=== PATIENT | female | born 1960 | race Caucasian/White ===

== ENCOUNTER 2020-06-05 20:36 | Inpatient (IN) | payer MEDICARE, OTHER ==
[~2020-06-05] VITALS: Ht 228 cm; Wt 104.0 kg
[~2020-06-05 20:36] MED LIST: ATARAX25 MG ORAL; NITROFURANTOIN100 M2 ORAL; ZOFRAN ODT4 MG ORAL
[2020-06-05 20:45] VITALS: BP 128/73
[2020-06-05] MEDS ORDERED: ELIQUIS5 MG ORAL (20:54)
[2020-06-05] MEDS ORDERED: METFORMIN HCL500 M1 ORAL (20:54)
[2020-06-05] MEDS ORDERED: LORATADINE10 M1 PO (20:54)
[2020-06-05] MEDS ORDERED: DOCUSATE SODIU250 MG ORAL (20:54)
[2020-06-05] MEDS ORDERED: ACETAMINOPHEN325 M1 ORAL ×2 (20:54)
[2020-06-05] MEDS ORDERED: POTASSIUM CHLO20 ME1 ORAL (20:54)
[2020-06-05] MEDS ORDERED: MULTIVITAMINS1 EAC8 ORAL (20:54)
[2020-06-05] MEDS ORDERED: NORCO 5-325 TA1 EAC1 ORAL (20:54)
[2020-06-05] MEDS ORDERED: REQUIP0.25 MG ORAL (20:54)
[2020-06-05] MEDS ORDERED: MAGOX 400400 MG ORAL (20:54)
[2020-06-05] MEDS ORDERED: SYNTHROID50 MCG ORAL (20:54)
[2020-06-05] MEDS ORDERED: FISH OIL 1,0001 EAC1 ORAL (20:54)
[2020-06-05] MEDS ORDERED: HUMULIN R100 UNIT/1 SUBQ (20:54)
[2020-06-05] MEDS ORDERED: METOPROLOL TART25 MG ORAL (20:54)
[2020-06-05] MEDS ORDERED: NEXAFED30 MG ORAL (20:54)
[2020-06-05] MEDS ORDERED: DIGOXIN125 MCG ORAL (20:54)
[2020-06-05] MEDS ORDERED: NEURONTIN400 MG ORAL (20:54)
[2020-06-05] MEDS ORDERED: NP THYROID30 MG PO (20:54)
[2020-06-05] MEDS ORDERED: NORCO 10-325 T1 EACH ORAL (20:54)
[2020-06-05 21:12] LABS: BASOPHILS % (AUTO) 1.6 % (0.0-2.0); EOSINOPHILS % (AUTO) 1.5 % (0.0-3.0); HEMATOCRIT 39.4 % (37.0-47.0); HEMOGLOBIN 12.9 G/DL (12.0-16.0); MEAN CORPUSCULAR VOLUME 90 FL (80-99); MONOCYTES % (AUTO) 8.4 % (1.0-10.0); NEUTROPHILS % (AUTO) 52.5 % (45.0-75.0); PLATELET COUNT 295 K/UL (150-450); RED BLOOD COUNT 4.38 M/UL (4.20-5.40); RED CELL DISTRIBUTION WIDTH 12.9 % (11.6-14.8)
[2020-06-05 21:22] LABS: APPEARANCE,URINE TURBID; BILIRUBIN, URINE NEGATIVE (NEGATIVE); GLUCOSE, URINE (UA) NEGATIVE (NEGATIVE); KETONES,URINE 1+ (NEGATIVE); LEUKOCYTE ESTERASE ,URINE 3+ (NEGATIVE); NITRITE,URINE POSITIVE (NEGATIVE); PH,URINE 7 (4.5-8.0); PROTEIN,URINE 3+ (NEGATIVE); UROBILINOGEN,URINE 1 MG/DL (0.0-1.0)
[2020-06-05 21:25] LABS: ANION GAP 9 mmol/L (5-15); BLOOD UREA NITROGEN 8 mg/dL (7-18); CALCIUM 9.2 MG/DL (8.5-10.1); CARBON DIOXIDE 26 MMOL/L (21-32); CHLORIDE 100 MMOL/L (98-107); CREATININE 0.8 MG/DL (0.55-1.30); POTASSIUM 4.1 MMOL/L (3.5-5.1); SODIUM 135 MMOL/L (136-145)
[2020-06-05 21:40] LABS: ALANINE AMINOTRANSFERASE 90 U/L (12-78); ALBUMIN 3.4 G/DL (3.4-5.0); ALBUMIN/GLOBULIN RATIO 0.7 (1.0-2.7); ALKALINE PHOSPHATASE 81 U/L (46-116); ASPARTATE AMINO TRANSFERASE 87 U/L (15-37); BILIRUBIN,TOTAL 0.4 MG/DL (0.2-1.0); CKMB < 0.5 NG/ML (0.0-3.6); CREATINE KINASE 47 U/L (26-308); PHOSPHORUS 3.3 MG/DL (2.5-4.9)
[2020-06-05 21:46] LABS: COLOR,URINE BROWN
--- NOTE | 2020-06-05 22:04 | Emergency Room Report ---
History of Present Illness General Chief Complaint: Dyspnea/Respdistress Source: Patient Present Illness HPI 60-year-old female presents with cough, shortness of breath x1 week, feeling nauseated, patient with a diagnosis of Covid, patient with fever/chills, no aggravating relieving factors severity is moderate, constant patient presents from snf for treatment for possible dehydration given reduced p.o. Allergies: Coded Allergies: No Known Allergies (Unverified , 11/04/15) COVID-19 Screening Contact w/high risk pt: No Experienced COVID-19 symptoms?: Yes COVID-19 Testing performed SPEECH PATHOLOGIST ASSISTANT: Yes - 06/04/20 COVID-19 Screening: Positive COVID-19 COVID-19 Testing Source: SNF Patient History Past Medical History: see triage record Now: No Reviewed Nursing Documentation: PMH: Agreed; PSxH: Agreed Nursing Documentation-PMH Hx Cardiac Problems: Yes - A Fib, hyperlipidemia Hx Diabetes: Yes Review of Systems All Other Systems: negative except mentioned in HPI Physical Exam Vital Signs Date Time Temp Pulse Resp B/P (MAP) Pulse Ox O2 Delivery O2 Flow Rate FiO2 06/05/20 20:37 99.1 62 19 120/70 (87) 92 Room Air Sp02 EP Interpretation: reviewed, normal General Appearance: well appearing, no apparent distress, alert Head: normocephalic, atraumatic Eyes: bilateral eye PERRL, bilateral eye EOMI ENT: uvula midline, dry mucus membranes Neck: supple, thyroid normal, supple/symm/no masses Respiratory: lungs clear, no respiratory distress, no retraction, no accessory muscle use Cardiovascular #1: normal peripheral pulses, regular rate, rhythm, no edema, no gallop, no murmur Gastrointestinal: non tender, soft, no guarding, no rebound Musculoskeletal: normal inspection Neurologic: alert, oriented x3 Psychiatric: mood/affect normal Skin: no rash, warm/dry Medical Decision Making Diagnostic Impression: Primary Impression: UTI (urinary tract infection) Qualified Codes: N30.00 - Acute cystitis without hematuria Additional Impressions: Dehydration COVID-19 ER Course 60-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 Butler for dehydration, UTI, and COVID Patient remains stable for med surg. Laboratory Tests Test 06/05/20 20:45 06/05/20 21:00 06/05/20 21:20 White Blood Count 7.0 K/UL (4.8-10.8) Red Blood Count 4.38 M/UL (4.20-5.40) Hemoglobin 12.9 G/DL (12.0-16.0) Hematocrit 39.4 % (37.0-47.0) Mean Corpuscular Volume 90 FL (80-99) Mean Corpuscular Hemoglobin 29.4 PG (27.0-31.0) Mean Corpuscular Hemoglobin Concent 32.6 G/DL (32.0-36.0) Red Cell Distribution Width 12.9 % (11.6-14.8) Platelet Count 295 K/UL (150-450) Mean Platelet Volume 6.4 FL (6.5-10.1) L Neutrophils (%) (Auto) 52.5 % (45.0-75.0) Lymphocytes (%) (Auto) 36.0 % (20.0-45.0) Monocytes (%) (Auto) 8.4 % (1.0-10.0) Eosinophils (%) (Auto) 1.5 % (0.0-3.0) Basophils (%) (Auto) 1.6 % (0.0-2.0) Sodium Level 135 MMOL/L (136-145) L Potassium Level 4.1 MMOL/L (3.5-5.1) Chloride Level 100 MMOL/L (98-107) Carbon Dioxide Level 26 MMOL/L (21-32) Anion Gap 9 mmol/L (5-15) Blood Urea Nitrogen 8 mg/dL (7-18) Creatinine 0.8 MG/DL (0.55-1.30) Estimated Glomerular Filtration Rate > 60 mL/min (>60) Glucose Level 212 MG/DL (74-106) H Lactic Acid Level 3.70 mmol/L (0.4-2.0) H Calcium Level 9.2 MG/DL (8.5-10.1) Phosphorus Level 3.3 MG/DL (2.5-4.9) Magnesium Level 1.5 MG/DL (1.8-2.4) L Total Bilirubin 0.4 MG/DL (0.2-1.0) Aspartate Amino Transferase (AST) 87 U/L (15-37) H Alanine Aminotransferase (ALT) 90 U/L (12-78) H Alkaline Phosphatase 81 U/L (46-116) Total Creatine Kinase 47 U/L (26-308) Creatine Kinase MB < 0.5 NG/ML (0.0-3.6) Creatine Kinase MB Relative Index 1.0 Troponin I 0.000 ng/mL (0.000-0.056) Pro-B-Type Natriuretic Peptide 281 pg/mL (0-125) H Total Protein 8.1 G/DL (6.4-8.2) Albumin 3.4 G/DL (3.4-5.0) Globulin 4.7 g/dL Albumin/Globulin Ratio 0.7 (1.0-2.7) L Lipase 145 U/L (73-393) Urine Color Brown Urine Appearance Turbid Urine pH 7 (4.5-8.0) Urine Specific [place] 1.015 (1.005-1.035) Urine Protein 3+ (NEGATIVE) H Urine Glucose (UA) Negative (NEGATIVE) Urine Ketones 1+ (NEGATIVE) H Urine Blood 5+ (NEGATIVE) H Urine Nitrite Positive (NEGATIVE) H Urine Bilirubin Negative (NEGATIVE) Urine Urobilinogen 1 MG/DL (0.0-1.0) H Urine Leukocyte Esterase 3+ (NEGATIVE) H Urine RBC Tntc /HPF (0 - 2) H Urine WBC Tntc /HPF (0 - 2) H Urine Squamous Epithelial Cells Moderate /LPF (NONE/OCC) H Urine Bacteria Many /HPF (NONE) H Prothrombin Time 10.9 SEC (9.30-11.50) Prothrombin Time INR 1.0 (0.9-1.1) Activated Partial Thromboplast Time 31 SEC (23-33) Microbiology Date/Time Source Procedure Growth Status 06/05/20 20:45 Nasopharynx SARS-CoV-2 RdRp Gene Assay - Final Complete EKG Diagnostic Results Troponin ordered: Yes When was troponin ordered?: Jun 05, 2020 - 2052 EKG Time: 20:54 EP Interpretation: Atrial fibrillation, rate 86, QTc 428, no acute ST elevations, normal axis Rhythm Strip Diag. Results Rhythm Strip Time: 22:11 EP Interpretation: yes Rate: 75 Rhythm: other - Afib Last Vital Signs Date Time Temp Pulse Resp B/P (MAP) Pulse Ox O2 Delivery O2 Flow Rate FiO2 06/05/20 20:45 98.9 78 22 128/73 97 Room Air Disposition: ADMITTED INPATIENT Condition: Stable Referrals: Jese Butler MD (PCP) Valerio Edwards MD Jun 05, 2020 22:04
[2020-06-05] MEDS ORDERED: cefTRIAXone 1 GM in NS 55 ML IVPB ONE (22:15)
[2020-06-05 22:30] VITALS: BP 130/77
[2020-06-06 00:40] VITALS: BP 105/55
[2020-06-06] MEDS ORDERED: REQUIP5 MG ORAL (02:01)
[2020-06-06] MEDS ORDERED: SYSTANE ULTRA 010 ML BOTH EYES (02:01)
[2020-06-06] MEDS ORDERED: ACETAMINOPHEN325 M1 ORAL (02:01)
[2020-06-06] MEDS ORDERED: AZELASTINE137 MCG/0. NS (02:01)
[2020-06-06] MEDS ORDERED: NP THYROID30 MG PO (02:01)
[2020-06-06] MEDS ORDERED: POTASSIUM CITR15 MEQ PO (02:01)
[2020-06-06] MEDS ORDERED: Pseudoephedrine 30mg tab ORAL PRN (02:15)
[2020-06-06 04:00] VITALS: BP 110/56
[2020-06-06] MEDS ORDERED: NovoLOG Insulin Flexpen SUBQ SCH (06:30)
[2020-06-06] MEDS: NovoLOG Insulin Flexpen SUBQ SCH ×5 (06:35→21:00)
[2020-06-06 08:00] VITALS: BP 110/56
[2020-06-06] MEDS ORDERED: Magnesium Oxide 400mg tab ORAL SCH (09:00)
[2020-06-06] MEDS: Multivitamin w/Minerals tab ORAL SCH (09:56)
[2020-06-06] MEDS: metFORMIN 500mg tab ORAL SCH ×2 (09:56→18:49)
[2020-06-06] MEDS: Docusate 250mg cap ORAL SCH ×2 (09:57→09:58)
[2020-06-06] MEDS: Magnesium Oxide 400mg tab ORAL SCH ×2 (09:58→18:49)
[2020-06-06] MEDS: Digoxin 0.125mg tab ORAL SCH (09:59)
[2020-06-06] MEDS: Eliquis 5mg tablet ORAL SCH ×2 (10:00→18:49)
[2020-06-06] MEDS: HYDROcodone/Acetamin 10/325 tab ORAL PRN (10:00)
[2020-06-06 12:00] VITALS: BP 110/56
--- NOTE | 2020-06-06 17:43 | Diagnostic Imaging Report ---
Indication: Cough Technique: One view of the chest Comparison: none Findings: Heart is enlarged. Lungs and pleural spaces are clear. Impression: Cardiomegaly. No definite acute process
[2020-06-06] MEDS: HYDROcodone/Acetamin 5/325 tab ORAL PRN ×2 (18:35→18:43)
--- NOTE | 2020-06-06 19:00 | History and Physical Report ---
DATE OF ADMISSION: 06/05/2020 HISTORY OF PRESENT ILLNESS: The patient is a 60-year-old white female who came to the emergency room for having severe diarrhea, dizziness, UTI, and dehydration and COVID-19 positive. The patient is currently in bed, looks very dehydrated and generalized weakness. The patient minimum cough, no fever, but had diarrhea for 3 days and feeling weak and tired and dizziness. PAST MEDICAL HISTORY: Significant for diabetes, hypertension, diabetic neuropathy, AFib, weakness. MEDICATIONS: She is taking digoxin, continue artificial tears, gabapentin, Murphy, levothyroxine, metformin, metoprolol, KCl. ALLERGIES: NKA. FAMILY HISTORY: Noncontributory. SOCIAL HISTORY: Lives at retirement, mostly bedbound. REVIEW OF SYSTEMS: Generalized weakness, tired, cough, and diarrhea, recurrent abdominal pain. PHYSICAL EXAMINATION: VITAL SIGNS: Blood pressure 110/56, pulse 71, respirations 17, temperature 98.1. HEENT: NAD. SKIN: Poor skin turgor and dehydration. CHEST: Bilaterally clear. CARDIOVASCULAR: Regular rhythm. ABDOMEN: Soft, mild tenderness. EXTREMITIES: No edema. GENITOURINARY: Deferred. LABORATORY DATA: White count 7, hemoglobin 13, hematocrit 39. Chemistry panel, lactic acid 3.7, A1c 7.7, glucose 82. Her urine is showing 2+ blood, TNTC rbc's, TNTC wbc's, positive nitrites, 5+ blood. ASSESSMENT AND PLAN: 1. Hematuria. 2. UTI. 3. COVID-19 positive. 4. Dehydration. 5. COVID-19 positive. PLAN: We will admit her to the medical floor in isolation. Continue antibiotic. Continue loratadine, milk of magnesia, thyroid, fish oil, multivitamin, metoprolol, gabapentin, Colace, consider pulmonary consult. Adonis Butler M.D. DR: CASSIDY JOB#: [id number] CC:
[2020-06-06 20:00] VITALS: BP 129/51
[2020-06-06] MEDS: cefTRIAXone 1 GM in D5W 55 ML IVPB SCH (21:40)
[2020-06-07 04:00] VITALS: BP 125/55
[2020-06-07] MEDS: HYDROcodone/Acetamin 5/325 tab ORAL PRN (05:34)
[2020-06-07 06:14] LABS: BASOPHILS % (AUTO) 0.8 % (0.0-2.0); EOSINOPHILS % (AUTO) 1.9 % (0.0-3.0); HEMATOCRIT 38.3 % (37.0-47.0); HEMOGLOBIN 12.2 G/DL (12.0-16.0); LYMPHOCYTES % (AUTO) 39.2 % (20.0-45.0); MEAN CORPUSCULAR VOLUME 93 FL (80-99); MONOCYTES % (AUTO) 7.7 % (1.0-10.0); NEUTROPHILS % (AUTO) 50.3 % (45.0-75.0); PLATELET COUNT 235 K/UL (150-450); RED BLOOD COUNT 4.13 M/UL (4.20-5.40); RED CELL DISTRIBUTION WIDTH 12.8 % (11.6-14.8); WHITE BLOOD COUNT 6.3 K/UL (4.8-10.8)
[2020-06-07 06:26] LABS: ALANINE AMINOTRANSFERASE 80 U/L (12-78); ALBUMIN/GLOBULIN RATIO 0.7 (1.0-2.7); ALKALINE PHOSPHATASE 73 U/L (46-116); ANION GAP 9 mmol/L (5-15); ASPARTATE AMINO TRANSFERASE 73 U/L (15-37); BILIRUBIN,TOTAL 0.3 MG/DL (0.2-1.0); BLOOD UREA NITROGEN 4 mg/dL (7-18); CALCIUM 8.9 MG/DL (8.5-10.1); CARBON DIOXIDE 23 MMOL/L (21-32); CHLORIDE 104 MMOL/L (98-107); CREATININE 0.6 MG/DL (0.55-1.30); POTASSIUM 4.1 MMOL/L (3.5-5.1); SODIUM 136 MMOL/L (136-145)
[2020-06-07] MEDS: NovoLOG Insulin Flexpen SUBQ SCH ×4 (06:30→21:00)
[2020-06-07 08:00] VITALS: BP 112/72
[2020-06-07] MEDS: Multivitamin w/Minerals tab ORAL SCH (09:44)
[2020-06-07] MEDS: metFORMIN 500mg tab ORAL SCH ×2 (09:46→17:54)
[2020-06-07] MEDS: Eliquis 5mg tablet ORAL SCH ×2 (09:46→17:54)
[2020-06-07] MEDS: Digoxin 0.125mg tab ORAL SCH (09:46)
[2020-06-07] MEDS: Magnesium Oxide 400mg tab ORAL SCH ×2 (09:47→17:54)
[2020-06-07] MEDS: HYDROcodone/Acetamin 10/325 tab ORAL PRN (09:49)
[2020-06-07 12:00] VITALS: BP 117/76
--- NOTE | 2020-06-07 12:13 | General Progress Note ---
Subjective Allergies: Coded Allergies: CIPROFLOXACIN (Unverified Allergy, Unknown, 06/06/20) SULFAMETHOXAZOLE (Unverified Allergy, Unknown, 06/06/20) TRIMETHOPRIM (Unverified Allergy, Unknown, 06/06/20) Subjective doing ok Objective Last 24 Hour Vital Signs Date Time Temp Pulse Resp B/P (MAP) Pulse Ox O2 Delivery O2 Flow Rate FiO2 06/07/20 09:46 89 06/07/20 09:45 89 112/72 06/07/20 08:06 Room Air 06/07/20 08:00 98.2 89 18 112/72 (85) 97 06/07/20 04:00 97.6 74 18 125/55 (78) 96 06/06/20 21:00 Room Air 06/06/20 20:00 98.4 78 17 129/51 (77) 97 06/06/20 16:18 71 110/56 Intake and Output 06/06/20 06/07/20 19:00 07:00 Intake Total 725 ml 1515 ml Output Total 850 ml Balance 725 ml 665 ml Intake Oral 650 ml 540 ml IV Total 75 ml 975 ml Output Urine Total 850 ml # Voids 3 # Bowel Movements 2 Laboratory Tests 06/06/20 12:44: POC Whole Blood Glucose 182H 06/06/20 16:28: POC Whole Blood Glucose [Pending] 06/06/20 21:46: POC Whole Blood Glucose 157H 06/07/20 05:00: White Blood Count 6.3, Red Blood Count 4.13L, Hemoglobin 12.2, Hematocrit 38.3, Mean Corpuscular Volume 93, Mean Corpuscular Hemoglobin 29.5, Mean Corpuscular Hemoglobin Concent 31.9L, Red Cell Distribution Width 12.8, Platelet Count 235, Mean Platelet Volume 5.8L, Neutrophils (%) (Auto) 50.3, Lymphocytes (%) (Auto) 39.2, Monocytes (%) (Auto) 7.7, Eosinophils (%) (Auto) 1.9, Basophils (%) (Auto) 0.8, Sodium Level 136, Potassium Level 4.1, Chloride Level 104, Carbon Dioxide Level 23, Anion Gap 9, Blood Urea Nitrogen 4L, Creatinine 0.6, Estimat Glomerular Filtration Rate > 60, Glucose Level 172H, Calcium Level 8.9, Total Bilirubin 0.3, Aspartate Amino Transf (AST/SGOT) 73H, Alanine Aminotransferase (ALT/SGPT) 80H, Alkaline Phosphatase 73, Total Protein 7.2, Albumin 3.0L, Globulin 4.2, Albumin/Globulin Ratio 0.7L Height (Feet): 6 Height (Inches): 6.00 Weight (Pounds): 219 General Appearance: alert EENT: PERRL/EOMI Neck: non-tender, supple Cardiovascular: normal rate Respiratory/Chest: crackles/rales Abdomen: non tender, soft Edema: mild edema Assessment/Plan Assessment/Plan: generaliez weakness woresning of arianna mayo 19 Jese Butler MD Jun 07, 2020 12:13
[2020-06-07 16:00] VITALS: BP 105/64
[2020-06-07 20:00] VITALS: BP 116/65
[2020-06-07] MEDS: cefTRIAXone 1 GM in D5W 55 ML IVPB SCH (22:11)
--- NOTE | 2020-06-07 22:30 | Consultation ---
DATE OF CONSULTATION: 06/07/2020 INFECTIOUS DISEASE CONSULTATION CONSULTING PHYSICIAN: Avtar Irene M.D. This consult is for coverage of Dr. Noel. PRIMARY ATTENDING PHYSICIAN: Jese Butler M.D. REASON FOR CONSULT: COVID-19 disease & UTI. HISTORY OF PRESENT ILLNESS: This 60-year-old white female admitted on June 05 from a custodial facility complaining of cough and congestion for 1 week. She had nausea, diarrhea, and sore throat. She was diagnosed nursing facility with COVID-19 disease on 04 of June. She says that there is an outbreak in nursing facility with COVID disease. PAST MEDICAL HISTORY: Diabetes mellitus, atrial fibrillation, history of CVA and left hemiplegia, hyperlipidemia, and long-term insulin use. PAST SURGICAL HISTORY: total left knee replacement. MEDICATIONS: Ceftriaxone, magnesium oxide, loratadine, potassium chloride, fish oil, multivitamin, metformin, metoprolol, gabapentin, apixaban, Synthroid, insulin, Requip, pseudoephedrine, [place], Tylenol ALLERGIES: Allergic to Cipro, sulfamethoxazole. SOCIAL HISTORY: Single, [facility] resident. Denies alcohol, drug abuse, or smoking. Disabled. REVIEW OF SYSTEMS: The patient has postnasal drip, nasal congestion, sore throat, and cough that is mostly dry. No diarrhea today. Has no urinary symptoms. PHYSICAL EXAMINATION: VITAL SIGNS: Temperature 98.1, pulse 94, blood pressure is 117/76, and O2 saturation in room air is 97%. GENERAL APPEARANCE: No acute distress. HEAD AND NECK: [place] conjunctivae. HEART: Normal rate. LUNGS: Clear. ABDOMEN: Soft and nontender. EXTREMITIES: No edema. LABORATORY AND DIAGNOSTIC DATA: WBC 6.3, hemoglobin 12.2, hematocrit 38.3, platelets 235,000. Sodium 136, potassium 4.1, chloride 104, bicarbonate 23, BUN 4, creatinine 0.6, glucose 172. AST 73, ALT 80. Chest x-ray showed cardiomegaly. No definite acute process. UA showed wbc's too numerous to count, leukocyte esterase 2+, rbc's too numerous to count, and nitrite positive. Urine culture growing gram-negative rods. COVID test was positive. Blood cultures so far are negative. IMPRESSION: COVID-19 disease, seems to be mild. The patient is comfortable in room air, pyuria may have UTI, has diabetes mellitus, atrial fibrillation, hyperlipidemia, history of cerebrovascular accident and left hemiplegia. RECOMMENDATION: Continue with ceftriaxone, but follow up the cultures. At the end of my exam, I thank Dr. Butler for involving me in the care of this patient. Avtar Irene M.D. DR: FER JOB#: [id number] CC: DREW
[2020-06-08] VITALS (8 sets, daily range): BP systolic 117–126; BP diastolic 63–72
[2020-06-08] MEDS: NovoLOG Insulin Flexpen SUBQ SCH ×4 (06:30→20:57)
[2020-06-08] MEDS: Multivitamin w/Minerals tab ORAL SCH (08:50)
[2020-06-08] MEDS: metFORMIN 500mg tab ORAL SCH ×2 (08:50→17:47)
[2020-06-08] MEDS: Eliquis 5mg tablet ORAL SCH ×2 (08:51→17:46)
[2020-06-08] MEDS: Digoxin 0.125mg tab ORAL SCH (08:51)
[2020-06-08] MEDS: Magnesium Oxide 400mg tab ORAL SCH ×2 (08:52→17:47)
[2020-06-08] MEDS ORDERED: SYNTHROID100 MCG ORAL (10:55)
[2020-06-08] MEDS ORDERED: AZELASTINE HCL6 ML BOTH EYES (10:55)
[2020-06-08] MEDS ORDERED: GABAPENTIN400 MG ORAL (10:55)
[2020-06-08] MEDS ORDERED: CRANBERRY450 M5 PO (10:55)
[2020-06-08] MEDS ORDERED: PREMARIN42.5 GM VG (10:55)
[2020-06-08] MEDS ORDERED: CULTURELLE1 EACH ORAL (10:55)
--- NOTE | 2020-06-08 12:08 | Infectious Diseases Prog Note ---
"Assessment/Plan Assessment/Plan antibiotics : ceftriaxone A 1. e.coli | proteus UTI 2. COVID 19 pneumonia om room air 3. diabetes mellitus 4. atrial fibrillation 5. CVA P 1. start zosyn 2. d/c ceftriaxone 3. will follow up cultures Subjective Constitutional: Denies: fever, chills Respiratory: Reports: dry cough; Denies: shortness of breath Gastrointestinal/Abdominal: Denies: nausea, vomiting, diarrhea Neurologic: Reports: headache Allergies: Coded Allergies: CIPROFLOXACIN (Unverified Allergy, Unknown, 06/06/20) SULFAMETHOXAZOLE (Unverified Allergy, Unknown, 06/06/20) TRIMETHOPRIM (Unverified Allergy, Unknown, 06/06/20) Objective Last 24 Hour Vital Signs Date Time Temp Pulse Resp B/P (MAP) Pulse Ox O2 Delivery O2 Flow Rate FiO2 06/08/20 09:00 Room Air 06/08/20 08:51 97 117/63 06/08/20 08:51 97 06/08/20 08:00 97.9 97 19 117/63 (81) 94 06/08/20 06:00 98.5 78 18 126/69 (88) 94 06/08/20 04:00 98.5 78 18 126/69 (88) 95 06/08/20 00:00 98.7 78 18 122/66 (84) 95 06/07/20 21:00 Room Air 06/07/20 20:00 98.7 73 18 116/65 (82) 96 06/07/20 17:56 66 105/64 06/07/20 16:00 98.1 66 18 105/64 (78) 97 Height (Feet): 6 Height (Inches): 6.00 Weight (Pounds): 219 Microbiology Date/Time Source Procedure Growth Status 06/05/20 23:40 Rectal Mucosa VRE Culture - Final NO VANCOMYCIN RESISTANT ENTEROCOCCUS ... Complete 06/05/20 23:40 Nasal Nares MRSA Culture - Final NO METHICILLIN RESISTANT STAPH AUREUS... Complete 06/05/20 21:00 Urine,Clean Catch Urine Culture - Preliminary Escherichia Coli Proteus Mirabilis Resulted 06/05/20 20:55 Blood Blood Culture - Preliminary NO GROWTH AFTER 24 HOURS Resulted 06/05/20 20:45 Nasopharynx SARS-CoV-2 RdRp Gene Assay - Final Complete 06/05/20 20:40 Blood Blood Culture - Preliminary NO GROWTH AFTER 24 HOURS Resulted Laboratory Tests Test 06/07/20 16:26 06/07/20 21:21 06/07/20 21:43 06/08/20 11:55 POC Whole Blood Glucose Pending 169 MG/DL (74-106) H 127 MG/DL (74-106) H 150 MG/DL (74-106) H Current Medications Medications (Trade) Dose Ordered Sig/Janice Route PRN Reason Start Time Stop Time Status Last Admin Dose Admin Acetaminophen (Tylenol) 650 mg Q6H PRN ORAL Mild Pain (Pain Scale 1-3) 06/06/20 02:15 07/06/20 02:14 Acetaminophen/ Hydrocodone Bitart ([place] 10/325) 1 tab Q8H PRN ORAL Severe Pain (Pain Scale 7-10) 06/06/20 02:15 06/13/20 02:14 06/07/20 09:49 Acetaminophen/ Hydrocodone Bitart ([place] 5/325) 1 tab Q6H PRN ORAL Moderate Pain (Pain Scale 4-6) 06/06/20 02:15 06/13/20 02:14 06/07/20 05:34 Apixaban (Eliquis) 5 mg BID ORAL 06/06/20 09:00 09/04/20 08:59 06/08/20 08:51 Artificial Tears ([place]-Tears) 1 drop Q6H PRN BOTH EYES Dry Eyes 06/06/20 02:15 07/06/20 02:14 Ceftriaxone Sodium 1 gm/ Dextrose 55 ml @ 110 mls/hr Q24H IVPB 06/06/20 22:00 06/13/20 21:59 06/07/20 22:11 Dextrose (Dextrose 50%) 25 ml Q30M PRN IV Hypoglycemia 06/06/20 05:00 09/04/20 04:59 Dextrose (Dextrose 50%) 50 ml Q30M PRN IV Hypoglycemia 06/06/20 05:00 09/04/20 04:59 Digoxin (Lanoxin) 0.125 mg DAILY ORAL 06/06/20 09:00 09/04/20 08:59 06/08/20 08:51 Fish Oil (Fish Oil) 1,000 mg DAILY ORAL 06/06/20 09:00 07/06/20 08:59 06/08/20 08:50 Gabapentin (Neurontin) 400 mg THREE TIMES A DAY ORAL 06/06/20 09:00 07/06/20 08:59 06/08/20 08:50 Insulin Aspart (NovoLOG) BEFORE MEALS AND HS SUBQ 06/06/20 06:30 09/04/20 06:29 Levothyroxine Sodium (Synthroid) 200 mcg ACBREAKFAST ORAL 06/06/20 06:30 07/06/20 06:29 06/08/20 06:10 Loratadine (Claritin 10mg) 10 mg DAILY ORAL 06/06/20 09:00 07/06/20 08:59 06/08/20 08:52 Magnesium Oxide (Mag-Ox 400mg) 400 mg TWICE A DAY ORAL 06/06/20 09:00 07/06/20 08:59 06/08/20 08:52 Metformin HCl (Glucophage) 1,000 mg TWICE A DAY ORAL 06/06/20 09:00 07/06/20 08:59 06/08/20 08:50 Metoprolol Tartrate (Lopressor) 25 mg BID ORAL 06/06/20 09:00 09/04/20 08:59 06/08/20 08:51 Multivitamins Therapeutic (Therapeutic Multivitamin) 1 ea DAILY ORAL 06/06/20 09:00 07/06/20 08:59 06/08/20 08:50 Potassium Chloride (K-Dur) 10 meq TWICE A DAY ORAL 06/06/20 09:00 09/04/20 08:59 06/08/20 08:52 Pseudoephedrine HCl (Sudafed) 30 mg Q6H PRN ORAL congestion 06/06/20 02:15 09/04/20 02:14 06/07/20 05:32 Ropinirole HCl (Requip) 1 mg TWICE A DAY PRN ORAL Muscle Spasm 06/06/20 05:00 07/06/20 04:59 Sodium Chloride 1,000 ml @ 75 mls/hr [id number] IV 06/06/20 15:45 07/06/20 15:44 06/08/20 08:50 Thyroid ([place] Thyroid) 15 mg DAILY ORAL 06/06/20 09:00 07/06/20 08:59 06/08/20 08:52 Deborah Noel MD Jun 08, 2020 12:08"
[2020-06-08] MEDS: HYDROcodone/Acetamin 10/325 tab ORAL PRN ×2 (12:10→20:59)
[2020-06-08] MEDS: Piperacillin/Tazobactam 3.375 GM in NS 110 ML IVPB SCH ×2 (14:12→20:59)
--- NOTE | 2020-06-08 16:16 | Cardiology Report ---
APPROVED REPORT EKG Measurement Heart [id number] <Conclusion> Atrial fibrillation Possible Inferior infarct, age undetermined Marked ST abnormality, possible lateral subendocardial injury Abnormal ECG
[2020-06-09 04:00] VITALS: BP 130/65
[2020-06-09] MEDS: Piperacillin/Tazobactam 3.375 GM in NS 110 ML IVPB SCH ×3 (06:00→16:49)
[2020-06-09] MEDS: NovoLOG Insulin Flexpen SUBQ SCH ×4 (06:30→21:00)
[2020-06-09 08:00] VITALS: BP 121/69
[2020-06-09] MEDS: Multivitamin w/Minerals tab ORAL SCH (08:27)
[2020-06-09] MEDS: Eliquis 5mg tablet ORAL SCH ×3 (08:31→18:28)
[2020-06-09] MEDS: Magnesium Oxide 400mg tab ORAL SCH ×3 (08:31→18:28)
[2020-06-09] MEDS: metFORMIN 500mg tab ORAL SCH ×3 (08:31→18:28)
[2020-06-09] MEDS: Digoxin 0.125mg tab ORAL SCH (08:32)
--- NOTE | 2020-06-09 11:52 | Infectious Diseases Prog Note ---
"Assessment/Plan Assessment/Plan antibiotics : zosyn A 1. e.coli | proteus UTI 2. COVID 19 pneumonia om room air 3. diabetes mellitus 4. atrial fibrillation 5. CVA P 1. continue zosyn 2. will follow up cultures Subjective ROS Limited/Unobtainable: Yes Allergies: Coded Allergies: CIPROFLOXACIN (Unverified Allergy, Unknown, 06/06/20) SULFAMETHOXAZOLE (Unverified Allergy, Unknown, 06/06/20) TRIMETHOPRIM (Unverified Allergy, Unknown, 06/06/20) Objective Last 24 Hour Vital Signs Date Time Temp Pulse Resp B/P (MAP) Pulse Ox O2 Delivery O2 Flow Rate FiO2 06/09/20 09:00 Room Air 06/09/20 08:32 92 121/69 06/09/20 08:32 92 06/09/20 08:00 98.6 92 18 121/69 (86) 96 06/09/20 04:00 98.9 98 18 130/65 (86) 94 06/08/20 23:39 99.4 98 18 120/68 (85) 95 06/08/20 21:29 97.8 06/08/20 21:00 Room Air 06/08/20 20:00 99.2 86 18 123/71 (88) 95 06/08/20 17:46 92 120/72 06/08/20 16:00 97.8 92 19 120/72 (88) 95 06/08/20 12:40 97.9 06/08/20 12:00 98.6 85 19 125/67 (86) 96 Height (Feet): 6 Height (Inches): 6.00 Weight (Pounds): 219 Microbiology Date/Time Source Procedure Growth Status 06/08/20 02:00 Stool Clostridium difficile Toxin Assay - Final Complete Laboratory Tests Test 06/08/20 11:55 06/08/20 16:38 06/08/20 20:19 06/09/20 06:53 POC Whole Blood Glucose 150 MG/DL (74-106) H Pending Pending 166 MG/DL (74-106) H Current Medications Medications (Trade) Dose Ordered Sig/Janice Route PRN Reason Start Time Stop Time Status Last Admin Dose Admin Acetaminophen (Tylenol) 650 mg Q6H PRN ORAL Mild Pain (Pain Scale 1-3) 06/06/20 02:15 07/06/20 02:14 Acetaminophen/ Hydrocodone Bitart ([place] 10/325) 1 tab Q8H PRN ORAL Severe Pain (Pain Scale 7-10) 06/06/20 02:15 06/13/20 02:14 06/08/20 20:59 Acetaminophen/ Hydrocodone Bitart ([place] 5/325) 1 tab Q6H PRN ORAL Moderate Pain (Pain Scale 4-6) 06/06/20 02:15 06/13/20 02:14 06/07/20 05:34 Apixaban (Eliquis) 5 mg BID ORAL 06/06/20 09:00 09/04/20 08:59 06/09/20 08:31 Artificial Tears ([place]-Tears) 1 drop Q6H PRN BOTH EYES Dry Eyes 06/06/20 02:15 07/06/20 02:14 Dextrose (Dextrose 50%) 25 ml Q30M PRN IV Hypoglycemia 06/06/20 05:00 09/04/20 04:59 Dextrose (Dextrose 50%) 50 ml Q30M PRN IV Hypoglycemia 06/06/20 05:00 09/04/20 04:59 Digoxin (Lanoxin) 0.125 mg DAILY ORAL 06/06/20 09:00 09/04/20 08:59 06/09/20 08:32 Fish Oil (Fish Oil) 1,000 mg DAILY ORAL 06/06/20 09:00 07/06/20 08:59 06/09/20 08:31 Gabapentin (Neurontin) 400 mg THREE TIMES A DAY ORAL 06/06/20 09:00 07/06/20 08:59 06/09/20 08:31 Insulin Aspart (NovoLOG) BEFORE MEALS AND HS SUBQ 06/06/20 06:30 09/04/20 06:29 Levothyroxine Sodium (Synthroid) 200 mcg ACBREAKFAST ORAL 06/06/20 06:30 07/06/20 06:29 06/09/20 06:30 Loratadine (Claritin 10mg) 10 mg DAILY ORAL 06/06/20 09:00 07/06/20 08:59 06/09/20 08:27 Magnesium Oxide (Mag-Ox 400mg) 400 mg TWICE A DAY ORAL 06/06/20 09:00 07/06/20 08:59 06/09/20 08:31 Metformin HCl (Glucophage) 1,000 mg TWICE A DAY ORAL 06/06/20 09:00 07/06/20 08:59 06/09/20 08:31 Metoprolol Tartrate (Lopressor) 25 mg BID ORAL 06/06/20 09:00 09/04/20 08:59 06/09/20 08:32 Multivitamins Therapeutic (Therapeutic Multivitamin) 1 ea DAILY ORAL 06/06/20 09:00 07/06/20 08:59 06/09/20 08:27 Piperacillin Sod/ Tazobactam Sod 3.375 gm/Sodium Chloride 110 ml @ 27.5 mls/hr Q8H IVPB 06/09/20 17:00 06/16/20 16:59 Potassium Chloride (K-Dur) 10 meq TWICE A DAY ORAL 06/06/20 09:00 09/04/20 08:59 06/09/20 08:32 Pseudoephedrine HCl (Sudafed) 30 mg Q6H PRN ORAL congestion 06/06/20 02:15 09/04/20 02:14 06/07/20 05:32 Ropinirole HCl (Requip) 1 mg TWICE A DAY PRN ORAL Muscle Spasm 06/06/20 05:00 07/06/20 04:59 06/09/20 08:39 Sodium Chloride 1,000 ml @ 75 mls/hr [id number] IV 06/06/20 15:45 07/06/20 15:44 06/08/20 08:50 Thyroid ([place] Thyroid) 15 mg DAILY ORAL 06/06/20 09:00 07/06/20 08:59 06/09/20 08:32 Deborah Noel MD Jun 09, 2020 11:52"
[2020-06-09 12:00] VITALS: BP 125/72
[2020-06-09 16:00] VITALS: BP 139/63
--- NOTE | 2020-06-09 16:38 | General Progress Note ---
Subjective Allergies: Coded Allergies: CIPROFLOXACIN (Unverified Allergy, Unknown, 06/06/20) SULFAMETHOXAZOLE (Unverified Allergy, Unknown, 06/06/20) TRIMETHOPRIM (Unverified Allergy, Unknown, 06/06/20) Subjective doing ok Objective Last 24 Hour Vital Signs Date Time Temp Pulse Resp B/P (MAP) Pulse Ox O2 Delivery O2 Flow Rate FiO2 06/09/20 16:00 99.1 94 19 139/63 (88) 95 06/09/20 12:00 97.8 96 18 125/72 (89) 96 06/09/20 09:00 Room Air 06/09/20 08:32 92 121/69 06/09/20 08:32 92 06/09/20 08:00 98.6 92 18 121/69 (86) 96 06/09/20 04:00 98.9 98 18 130/65 (86) 94 06/08/20 23:39 99.4 98 18 120/68 (85) 95 06/08/20 21:29 97.8 06/08/20 21:00 Room Air 06/08/20 20:00 99.2 86 18 123/71 (88) 95 06/08/20 17:46 92 120/72 Intake and Output 06/08/20 06/09/20 19:00 07:00 Intake Total 980 ml Output Total 300 ml Balance 680 ml Intake Oral 980 ml Output Urine Total 300 ml # Voids 1 2 # Bowel Movements 4 Laboratory Tests 06/08/20 16:38: POC Whole Blood Glucose [Pending] 06/08/20 20:19: POC Whole Blood Glucose [Pending] 06/09/20 06:53: POC Whole Blood Glucose 166H Height (Feet): 6 Height (Inches): 6.00 Weight (Pounds): 219 General Appearance: alert EENT: PERRL/EOMI Neck: non-tender, supple Cardiovascular: regular rhythm Respiratory/Chest: lungs clear Abdomen: non tender, soft Assessment/Plan Assessment/Plan: generaliez weakness woresning of mystenia covid 19 check labs Jese Butler MD Jun 09, 2020 16:38
[2020-06-09 20:00] VITALS: BP 126/57
[2020-06-09] MEDS: HYDROcodone/Acetamin 10/325 tab ORAL PRN (23:27)
[2020-06-10] MEDS: Piperacillin/Tazobactam 3.375 GM in NS 110 ML IVPB SCH ×3 (00:09→17:13)
[2020-06-10 04:00] VITALS: BP 116/60
[2020-06-10] MEDS: NovoLOG Insulin Flexpen SUBQ SCH ×4 (06:30→20:44)
[2020-06-10 08:00] VITALS: BP 133/58
[2020-06-10] MEDS: Digoxin 0.125mg tab ORAL SCH (08:27)
[2020-06-10] MEDS: HYDROcodone/Acetamin 10/325 tab ORAL PRN ×2 (08:28→15:43)
[2020-06-10] MEDS: Eliquis 5mg tablet ORAL SCH ×2 (08:29→17:12)
[2020-06-10] MEDS: Magnesium Oxide 400mg tab ORAL SCH ×2 (08:36→17:12)
[2020-06-10] MEDS: metFORMIN 500mg tab ORAL SCH ×2 (08:36→17:12)
[2020-06-10] MEDS: Multivitamin w/Minerals tab ORAL SCH (08:36)
--- NOTE | 2020-06-10 10:28 | General Progress Note ---
Subjective Allergies: Coded Allergies: CIPROFLOXACIN (Unverified Allergy, Unknown, 06/06/20) SULFAMETHOXAZOLE (Unverified Allergy, Unknown, 06/06/20) TRIMETHOPRIM (Unverified Allergy, Unknown, 06/06/20) Subjective c/o foot pain and open sore nurse claims no sore foot drop already on pain meds cough Objective Last 24 Hour Vital Signs Date Time Temp Pulse Resp B/P (MAP) Pulse Ox O2 Delivery O2 Flow Rate FiO2 06/10/20 08:58 97.7 06/10/20 08:35 81 119/77 06/10/20 08:27 81 06/10/20 08:00 98.1 81 20 133/58 (83) 94 06/10/20 04:00 97.7 94 21 116/60 (78) 96 06/10/20 02:53 98.2 06/10/20 00:34 98.9 06/10/20 00:34 98.9 06/10/20 00:04 100.6 06/09/20 23:57 99.9 06/09/20 21:00 Room Air 06/09/20 20:00 99.9 88 19 126/57 (80) 94 06/09/20 16:00 99.1 94 19 139/63 (88) 95 06/09/20 12:00 97.8 96 18 125/72 (89) 96 Intake and Output 06/09/20 06/10/20 19:00 07:00 Intake Total 535.0 ml 765.0 ml Output Total 1400 ml 300 ml Balance -865.0 ml 465.0 ml Intake Oral 480 ml IV Total 55.0 ml 765.0 ml Output Urine Total 1400 ml 300 ml # Voids 3 # Bowel Movements 3 1 Laboratory Tests 06/09/20 20:12: POC Whole Blood Glucose [Pending] 06/10/20 07:05: POC Whole Blood Glucose 183H Height (Feet): 6 Height (Inches): 6.00 Weight (Pounds): 219 General Appearance: alert EENT: PERRL/EOMI Neck: non-tender, supple Cardiovascular: regular rhythm Respiratory/Chest: crackles/rales Abdomen: non tender, soft Assessment/Plan Assessment/Plan: generaliez weakness woresning of mystenia covid 19 check labs add decadron, zinc pulmo consult Jese Butler MD Jun 10, 2020 10:27
--- NOTE | 2020-06-10 11:30 | Infectious Diseases Prog Note ---
"Assessment/Plan Assessment/Plan antibiotics : zosyn A 1. e.coli | proteus UTI 2. COVID 19 pneumonia om room air 3. diabetes mellitus 4. atrial fibrillation 5. CVA P 1. continue zosyn 5 more days 2. will follow up cultures Subjective Constitutional: Denies: fever, chills Respiratory: Reports: dry cough - mild; Denies: shortness of breath Gastrointestinal/Abdominal: Denies: nausea, vomiting, diarrhea Musculoskeletal: Denies: pain Allergies: Coded Allergies: CIPROFLOXACIN (Unverified Allergy, Unknown, 06/06/20) SULFAMETHOXAZOLE (Unverified Allergy, Unknown, 06/06/20) TRIMETHOPRIM (Unverified Allergy, Unknown, 06/06/20) Objective Last 24 Hour Vital Signs Date Time Temp Pulse Resp B/P (MAP) Pulse Ox O2 Delivery O2 Flow Rate FiO2 06/10/20 08:58 97.7 06/10/20 08:35 81 119/77 06/10/20 08:27 81 06/10/20 08:00 98.1 81 20 133/58 (83) 94 06/10/20 04:00 97.7 94 21 116/60 (78) 96 06/10/20 02:53 98.2 06/10/20 00:34 98.9 06/10/20 00:34 98.9 06/10/20 00:04 100.6 06/09/20 23:57 99.9 06/09/20 21:00 Room Air 06/09/20 20:00 99.9 88 19 126/57 (80) 94 06/09/20 16:00 99.1 94 19 139/63 (88) 95 06/09/20 12:00 97.8 96 18 125/72 (89) 96 Height (Feet): 6 Height (Inches): 6.00 Weight (Pounds): 219 Microbiology Date/Time Source Procedure Growth Status 06/08/20 02:00 Stool Clostridium difficile Toxin Assay - Final Complete Laboratory Tests Test 06/09/20 20:12 06/10/20 07:05 POC Whole Blood Glucose Pending 183 MG/DL (74-106) H Current Medications Medications (Trade) Dose Ordered Sig/Janice Route PRN Reason Start Time Stop Time Status Last Admin Dose Admin Acetaminophen (Tylenol) 650 mg Q6H PRN ORAL Mild Pain (Pain Scale 1-3) 06/06/20 02:15 07/06/20 02:14 06/10/20 00:04 Acetaminophen/ Hydrocodone Bitart ([place] 10/325) 1 tab Q8H PRN ORAL Severe Pain (Pain Scale 7-10) 06/06/20 02:15 06/13/20 02:14 06/10/20 08:28 Acetaminophen/ Hydrocodone Bitart ([place] 5/325) 1 tab Q6H PRN ORAL Moderate Pain (Pain Scale 4-6) 06/06/20 02:15 06/13/20 02:14 06/07/20 05:34 Apixaban (Eliquis) 5 mg BID ORAL 06/06/20 09:00 09/04/20 08:59 06/10/20 08:29 Artificial Tears (Akwa-Tears) 1 drop Q6H PRN BOTH EYES Dry Eyes 06/06/20 02:15 07/06/20 02:14 Dexamethasone Sodium Phosphate (Decadron 10mg/ ml Inj) 6 mg DAILY IV 06/10/20 11:00 06/19/20 09:01 Dextrose (Dextrose 50%) 25 ml Q30M PRN IV Hypoglycemia 06/06/20 05:00 09/04/20 04:59 Dextrose (Dextrose 50%) 50 ml Q30M PRN IV Hypoglycemia 06/06/20 05:00 09/04/20 04:59 Digoxin (Lanoxin) 0.125 mg DAILY ORAL 06/06/20 09:00 09/04/20 08:59 06/10/20 08:27 Fish Oil (Fish Oil) 1,000 mg DAILY ORAL 06/06/20 09:00 07/06/20 08:59 06/10/20 08:29 Gabapentin (Neurontin) 400 mg THREE TIMES A DAY ORAL 06/06/20 09:00 07/06/20 08:59 06/10/20 08:28 Insulin Aspart (NovoLOG) BEFORE MEALS AND HS SUBQ 06/06/20 06:30 09/04/20 06:29 06/09/20 12:19 Levothyroxine Sodium (Synthroid) 200 mcg ACBREAKFAST ORAL 06/06/20 06:30 07/06/20 06:29 06/10/20 07:00 Loratadine (Claritin 10mg) 10 mg DAILY ORAL 06/06/20 09:00 07/06/20 08:59 06/10/20 08:36 Magnesium Oxide (Mag-Ox 400mg) 400 mg TWICE A DAY ORAL 06/06/20 09:00 07/06/20 08:59 06/10/20 08:36 Metformin HCl (Glucophage) 1,000 mg TWICE A DAY ORAL 06/06/20 09:00 07/06/20 08:59 06/10/20 08:36 Metoprolol Tartrate (Lopressor) 25 mg BID ORAL 06/06/20 09:00 09/04/20 08:59 06/10/20 08:35 Multivitamins Therapeutic (Therapeutic Multivitamin) 1 ea DAILY ORAL 06/06/20 09:00 07/06/20 08:59 06/10/20 08:36 Piperacillin Sod/ Tazobactam Sod 3.375 gm/Sodium Chloride 110 ml @ 27.5 mls/hr Q8H IVPB 06/09/20 17:00 06/16/20 16:59 06/10/20 08:29 Potassium Chloride (K-Dur) 10 meq TWICE A DAY ORAL 06/06/20 09:00 09/04/20 08:59 06/10/20 08:36 Pseudoephedrine HCl (Sudafed) 30 mg Q6H PRN ORAL congestion 06/06/20 02:15 09/04/20 02:14 06/07/20 05:32 Ropinirole HCl (Requip) 1 mg TWICE A DAY PRN ORAL Muscle Spasm 06/06/20 05:00 07/06/20 04:59 06/09/20 08:39 Sodium Chloride 1,000 ml @ 75 mls/hr [id number] IV 06/06/20 15:45 07/06/20 15:44 06/09/20 23:28 Thyroid ([place] Thyroid) 15 mg DAILY ORAL 06/06/20 09:00 07/06/20 08:59 06/10/20 08:35 Zinc Sulfate (Zinc Sulfate) 220 mg DAILY ORAL 06/10/20 11:00 09/08/20 10:59 Deborah Noel MD Jun 10, 2020 11:30"
[2020-06-10] MEDS: Zinc Sulfate 220mg ORAL SCH (11:57)
[2020-06-10] MEDS: dexAMETHasone 10mg/ml Inj IV SCH (11:57)
[2020-06-10 12:00] VITALS: BP 119/60
[2020-06-10 16:00] VITALS: BP 123/63
[2020-06-10 20:00] VITALS: BP 118/60
[2020-06-11] VITALS: BP 115/70
[2020-06-11] MEDS: Piperacillin/Tazobactam 3.375 GM in NS 110 ML IVPB SCH ×3 (02:30→17:34)
[2020-06-11 04:00] VITALS: BP 102/64
[2020-06-11] MEDS: HYDROcodone/Acetamin 10/325 tab ORAL PRN ×2 (05:38→17:32)
[2020-06-11] MEDS: NovoLOG Insulin Flexpen SUBQ SCH ×4 (05:42→20:50)
--- NOTE | 2020-06-11 06:06 | General Progress Note ---
Subjective Allergies: Coded Allergies: CIPROFLOXACIN (Unverified Allergy, Unknown, 06/06/20) SULFAMETHOXAZOLE (Unverified Allergy, Unknown, 06/06/20) TRIMETHOPRIM (Unverified Allergy, Unknown, 06/06/20) Subjective c/o foot pain and open sore nurse claims no sore foot drop already on pain meds cough Objective Last 24 Hour Vital Signs Date Time Temp Pulse Resp B/P (MAP) Pulse Ox O2 Delivery O2 Flow Rate FiO2 06/11/20 04:00 97.7 75 16 102/64 (77) 96 06/11/20 00:00 97.2 87 20 115/70 (85) 96 06/10/20 20:02 Room Air 06/10/20 20:00 97.2 83 20 118/60 (79) 97 06/10/20 17:12 87 123/63 06/10/20 16:13 99.3 06/10/20 16:00 99.3 87 21 123/63 (83) 98 06/10/20 12:00 99.0 80 19 119/60 (79) 98 06/10/20 09:00 Room Air 06/10/20 08:58 97.7 06/10/20 08:35 81 119/77 06/10/20 08:27 81 06/10/20 08:00 98.1 81 20 133/58 (83) 94 Intake and Output 06/10/20 06/11/20 19:00 07:00 Intake Total 1637.5 ml 27.5 ml Output Total 600 ml Balance 1037.5 ml 27.5 ml Intake Oral 600 ml IV Total 1037.5 ml 27.5 ml Output Urine Total 600 ml # Bowel Movements 1 Laboratory Tests 06/10/20 07:05: POC Whole Blood Glucose 183H 06/10/20 17:28: POC Whole Blood Glucose 228H 06/10/20 20:38: POC Whole Blood Glucose [Pending] Height (Feet): 6 Height (Inches): 6.00 Weight (Pounds): 219 EENT: PERRL/EOMI Cardiovascular: normal rate Respiratory/Chest: lungs clear Abdomen: non tender, soft Extremities: calf tenderness, slow capillary refill Assessment/Plan Assessment/Plan: generaliez weakness woresning of mystenia covid 19 check labs add decadron, zinc pulmo consult check labs Jese Butler MD Jun 11, 2020 06:06
[2020-06-11 08:00] VITALS: BP 110/70
[2020-06-11] MEDS: Multivitamin w/Minerals tab ORAL SCH (10:19)
[2020-06-11] MEDS: Zinc Sulfate 220mg ORAL SCH (10:20)
[2020-06-11] MEDS: Magnesium Oxide 400mg tab ORAL SCH ×2 (10:21→17:33)
[2020-06-11] MEDS: Eliquis 5mg tablet ORAL SCH ×2 (10:21→17:33)
[2020-06-11] MEDS: Digoxin 0.125mg tab ORAL SCH (10:22)
[2020-06-11] MEDS: dexAMETHasone 10mg/ml Inj IV SCH (10:23)
[2020-06-11] MEDS: metFORMIN 500mg tab ORAL SCH ×2 (10:26→17:32)
--- NOTE | 2020-06-11 11:35 | Infectious Diseases Prog Note ---
"Assessment/Plan Assessment/Plan antibiotics : zosyn A 1. e.coli | proteus UTI 2. COVID 19 pneumonia om room air 3. diabetes mellitus 4. atrial fibrillation 5. CVA P 1. continue zosyn 4 more days 2. will follow up cultures Subjective Constitutional: Denies: fever, chills Respiratory: Reports: dry cough; Denies: shortness of breath Gastrointestinal/Abdominal: Denies: nausea, vomiting, diarrhea Musculoskeletal: Denies: pain Allergies: Coded Allergies: CIPROFLOXACIN (Unverified Allergy, Unknown, 06/06/20) SULFAMETHOXAZOLE (Unverified Allergy, Unknown, 06/06/20) TRIMETHOPRIM (Unverified Allergy, Unknown, 06/06/20) Objective Last 24 Hour Vital Signs Date Time Temp Pulse Resp B/P (MAP) Pulse Ox O2 Delivery O2 Flow Rate FiO2 06/11/20 10:22 75 102/64 06/11/20 10:22 75 06/11/20 04:00 97.7 75 16 102/64 (77) 96 06/11/20 00:00 97.2 87 20 115/70 (85) 96 06/10/20 20:02 Room Air 06/10/20 20:00 97.2 83 20 118/60 (79) 97 06/10/20 17:12 87 123/63 06/10/20 16:13 99.3 06/10/20 16:00 99.3 87 21 123/63 (83) 98 06/10/20 12:00 99.0 80 19 119/60 (79) 98 Height (Feet): 6 Height (Inches): 6.00 Weight (Pounds): 219 Respiratory/Chest: lungs clear Cardiovascular: normal rate, regular rhythm, no gallop/murmur Extremities: no edema Laboratory Tests Test 06/10/20 17:28 06/10/20 20:38 POC Whole Blood Glucose 228 MG/DL (74-106) H Pending Current Medications Medications (Trade) Dose Ordered Sig/Janice Route PRN Reason Start Time Stop Time Status Last Admin Dose Admin Acetaminophen (Tylenol) 650 mg Q6H PRN ORAL Mild Pain (Pain Scale 1-3) 06/06/20 02:15 07/06/20 02:14 06/10/20 00:04 Acetaminophen/ Hydrocodone Bitart ([place] 10/325) 1 tab Q8H PRN ORAL Severe Pain (Pain Scale 7-10) 06/06/20 02:15 06/13/20 02:14 06/11/20 05:38 Acetaminophen/ Hydrocodone Bitart ([place] 5/325) 1 tab Q6H PRN ORAL Moderate Pain (Pain Scale 4-6) 06/06/20 02:15 06/13/20 02:14 06/07/20 05:34 Apixaban (Eliquis) 5 mg BID ORAL 06/06/20 09:00 09/04/20 08:59 06/11/20 10:21 Artificial Tears (Akwa-Tears) 1 drop Q6H PRN BOTH EYES Dry Eyes 06/06/20 02:15 07/06/20 02:14 Dexamethasone Sodium Phosphate (Decadron 10mg/ ml Inj) 6 mg DAILY IV 06/10/20 11:00 06/19/20 09:01 06/11/20 10:23 Dextrose (Dextrose 50%) 25 ml Q30M PRN IV Hypoglycemia 06/06/20 05:00 09/04/20 04:59 Dextrose (Dextrose 50%) 50 ml Q30M PRN IV Hypoglycemia 06/06/20 05:00 09/04/20 04:59 Digoxin (Lanoxin) 0.125 mg DAILY ORAL 06/06/20 09:00 09/04/20 08:59 06/11/20 10:22 Fish Oil (Fish Oil) 1,000 mg DAILY ORAL 06/06/20 09:00 07/06/20 08:59 06/11/20 10:21 Gabapentin (Neurontin) 400 mg THREE TIMES A DAY ORAL 06/06/20 09:00 07/06/20 08:59 06/11/20 10:20 Insulin Aspart (NovoLOG) BEFORE MEALS AND HS SUBQ 06/06/20 06:30 09/04/20 06:29 06/11/20 05:42 Levothyroxine Sodium (Synthroid) 200 mcg ACBREAKFAST ORAL 06/06/20 06:30 07/06/20 06:29 06/11/20 05:45 Loratadine (Claritin 10mg) 10 mg DAILY ORAL 06/06/20 09:00 07/06/20 08:59 06/11/20 10:20 Magnesium Oxide (Mag-Ox 400mg) 400 mg TWICE A DAY ORAL 06/06/20 09:00 07/06/20 08:59 06/11/20 10:21 Metformin HCl (Glucophage) 1,000 mg TWICE A DAY ORAL 06/06/20 09:00 07/06/20 08:59 06/11/20 10:26 Metoprolol Tartrate (Lopressor) 25 mg BID ORAL 06/06/20 09:00 09/04/20 08:59 06/11/20 10:22 Multivitamins Therapeutic (Therapeutic Multivitamin) 1 ea DAILY ORAL 06/06/20 09:00 07/06/20 08:59 06/11/20 10:19 Piperacillin Sod/ Tazobactam Sod 3.375 gm/Sodium Chloride 110 ml @ 27.5 mls/hr Q8H IVPB 06/09/20 17:00 06/16/20 16:59 06/11/20 10:22 Potassium Chloride (K-Dur) 10 meq TWICE A DAY ORAL 06/06/20 09:00 09/04/20 08:59 06/11/20 10:21 Pseudoephedrine HCl (Sudafed) 30 mg Q6H PRN ORAL congestion 06/06/20 02:15 09/04/20 02:14 06/07/20 05:32 Ropinirole HCl (Requip) 1 mg TWICE A DAY PRN ORAL Muscle Spasm 06/06/20 05:00 07/06/20 04:59 06/11/20 05:54 Sodium Chloride 1,000 ml @ 75 mls/hr [id number] IV 06/06/20 15:45 07/06/20 15:44 06/11/20 02:42 Thyroid ([place] Thyroid) 15 mg DAILY ORAL 06/06/20 09:00 07/06/20 08:59 06/11/20 10:21 Zinc Sulfate (Zinc Sulfate) 220 mg DAILY ORAL 06/10/20 11:00 09/08/20 10:59 06/11/20 10:20 Deborah Noel MD Jun 11, 2020 11:35"
[2020-06-11 12:00] VITALS: BP 120/65
[2020-06-11 16:00] VITALS: BP 109/72
[2020-06-11 20:00] VITALS: BP 107/54
[2020-06-12] VITALS: BP 122/60
[2020-06-12] MEDS: Piperacillin/Tazobactam 3.375 GM in NS 110 ML IVPB SCH ×2 (00:16→08:56)
[2020-06-12] MEDS: HYDROcodone/Acetamin 10/325 tab ORAL PRN ×2 (01:38→11:42)
[2020-06-12 04:00] VITALS: BP 117/50
[2020-06-12] MEDS: NovoLOG Insulin Flexpen SUBQ SCH ×2 (05:41→11:47)
[2020-06-12 08:42] VITALS: BP 119/60
[2020-06-12] MEDS: dexAMETHasone 10mg/ml Inj IV SCH (08:43)
[2020-06-12] MEDS: Eliquis 5mg tablet ORAL SCH (08:45)
[2020-06-12] MEDS: Digoxin 0.125mg tab ORAL SCH (08:46)
[2020-06-12] MEDS: Magnesium Oxide 400mg tab ORAL SCH (08:47)
[2020-06-12] MEDS: Zinc Sulfate 220mg ORAL SCH (08:47)
[2020-06-12] MEDS: Multivitamin w/Minerals tab ORAL SCH (08:47)
[2020-06-12] MEDS: metFORMIN 500mg tab ORAL SCH (09:00)
--- NOTE | 2020-06-12 12:28 | General Progress Note ---
Subjective Allergies: Coded Allergies: CIPROFLOXACIN (Unverified Allergy, Unknown, 06/06/20) SULFAMETHOXAZOLE (Unverified Allergy, Unknown, 06/06/20) TRIMETHOPRIM (Unverified Allergy, Unknown, 06/06/20) Subjective c/o interctable pain foot drop already on pain meds Objective Last 24 Hour Vital Signs Date Time Temp Pulse Resp B/P (MAP) Pulse Ox O2 Delivery O2 Flow Rate FiO2 06/12/20 09:20 Room Air 06/12/20 08:47 86 119/60 06/12/20 08:46 86 06/12/20 08:42 97.5 86 18 119/60 (79) 97 06/12/20 04:00 97.6 72 18 117/50 (72) 97 06/12/20 00:00 98.0 90 18 122/60 (80) 96 06/11/20 21:00 Room Air 06/11/20 20:00 97.3 64 18 107/54 (71) 97 06/11/20 18:02 98.0 06/11/20 17:33 95 109/72 06/11/20 16:00 97.8 95 18 109/72 (84) 97 Intake and Output 06/11/20 06/12/20 19:00 07:00 Intake Total 1922.5 ml 1362.5 ml Output Total 1000 ml 800 ml Balance 922.5 ml 562.5 ml Intake Oral 960 ml IV Total 962.5 ml 962.5 ml Other 400 ml Output Urine Total 1000 ml 800 ml # Voids 1 # Bowel Movements 1 Laboratory Tests 06/11/20 20:49: POC Whole Blood Glucose [Pending] Height (Feet): 6 Height (Inches): 6.00 Weight (Pounds): 219 General Appearance: alert EENT: PERRL/EOMI Neck: supple Cardiovascular: normal rate Respiratory/Chest: normal breath sounds Abdomen: non tender, soft Extremities: non-tender Assessment/Plan Assessment/Plan: worsening of pain pain consult generaliez weakness woresning of mystenia covid 19 check labs add decadron, zinc pulmo consult check labs Jsee Butler MD Jun 12, 2020 12:28
[2020-06-12 13:00] VITALS: BP 115/75
--- NOTE | 2020-06-12 13:07 | Infectious Diseases Prog Note ---
"Assessment/Plan Assessment/Plan A 1. E.coli | proteus UTI 2. COVID19 pneumonia 3. diabetes mellitus 4. atrial fibrillation 5. CVA P 1. continue Zosyn 3 more days 2. will follow up cultures Subjective ROS Limited/Unobtainable: No Constitutional: Reports: no symptoms Respiratory: Reports: productive cough Gastrointestinal/Abdominal: Reports: no symptoms Genitourinary: Reports: no symptoms Allergies: Coded Allergies: CIPROFLOXACIN (Unverified Allergy, Unknown, 06/06/20) SULFAMETHOXAZOLE (Unverified Allergy, Unknown, 06/06/20) TRIMETHOPRIM (Unverified Allergy, Unknown, 06/06/20) Objective Last 24 Hour Vital Signs Date Time Temp Pulse Resp B/P (MAP) Pulse Ox O2 Delivery O2 Flow Rate FiO2 06/12/20 13:00 97.2 76 18 115/75 (88) 96 06/12/20 09:20 Room Air 06/12/20 08:47 86 119/60 06/12/20 08:46 86 06/12/20 08:42 97.5 86 18 119/60 (79) 97 06/12/20 04:00 97.6 72 18 117/50 (72) 97 06/12/20 00:00 98.0 90 18 122/60 (80) 96 06/11/20 21:00 Room Air 06/11/20 20:00 97.3 64 18 107/54 (71) 97 06/11/20 18:02 98.0 06/11/20 17:33 95 109/72 06/11/20 16:00 97.8 95 18 109/72 (84) 97 Height (Feet): 6 Height (Inches): 6.00 Weight (Pounds): 219 General Appearance: no acute distress HEENT: mucous membranes moist Respiratory/Chest: lungs clear Cardiovascular: normal rate Abdomen: soft, non tender Extremities: no edema Neurologic/Psychiatric: alert, oriented x 3, responsive, other - left hemiplegia Laboratory Tests Test 06/11/20 20:49 POC Whole Blood Glucose Pending Current Medications Medications (Trade) Dose Ordered Sig/Janice Route PRN Reason Start Time Stop Time Status Last Admin Dose Admin Acetaminophen (Tylenol) 650 mg Q6H PRN ORAL Mild Pain (Pain Scale 1-3) 06/06/20 02:15 07/06/20 02:14 06/10/20 00:04 Acetaminophen/ Hydrocodone Bitart ([place] 10/325) 1 tab Q8H PRN ORAL Severe Pain (Pain Scale 7-10) 06/06/20 02:15 06/13/20 02:14 06/12/20 11:42 Acetaminophen/ Hydrocodone Bitart ([place] 5/325) 1 tab Q6H PRN ORAL Moderate Pain (Pain Scale 4-6) 06/06/20 02:15 06/13/20 02:14 06/07/20 05:34 Apixaban (Eliquis) 5 mg BID ORAL 06/06/20 09:00 09/04/20 08:59 06/12/20 08:45 Artificial Tears ([place]wa-Tears) 1 drop Q6H PRN BOTH EYES Dry Eyes 06/06/20 02:15 07/06/20 02:14 Dexamethasone Sodium Phosphate (Decadron 10mg/ ml Inj) 6 mg DAILY IV 06/10/20 11:00 06/19/20 09:01 06/12/20 08:43 Dextrose (Dextrose 50%) 25 ml Q30M PRN IV Hypoglycemia 06/06/20 05:00 09/04/20 04:59 Dextrose (Dextrose 50%) 50 ml Q30M PRN IV Hypoglycemia 06/06/20 05:00 09/04/20 04:59 Digoxin (Lanoxin) 0.125 mg DAILY ORAL 06/06/20 09:00 09/04/20 08:59 06/12/20 08:46 Fish Oil (Fish Oil) 1,000 mg DAILY ORAL 06/06/20 09:00 07/06/20 08:59 06/12/20 08:45 Gabapentin (Neurontin) 400 mg THREE TIMES A DAY ORAL 06/06/20 09:00 07/06/20 08:59 06/12/20 08:47 Insulin Aspart (NovoLOG) BEFORE MEALS AND HS SUBQ 06/06/20 06:30 09/04/20 06:29 06/12/20 11:47 Levothyroxine Sodium (Synthroid) 200 mcg ACBREAKFAST ORAL 06/06/20 06:30 07/06/20 06:29 06/12/20 05:36 Loratadine (Claritin 10mg) 10 mg DAILY ORAL 06/06/20 09:00 07/06/20 08:59 06/12/20 08:44 Magnesium Oxide (Mag-Ox 400mg) 400 mg TWICE A DAY ORAL 06/06/20 09:00 07/06/20 08:59 06/12/20 08:47 Metformin HCl (Glucophage) 1,000 mg TWICE A DAY ORAL 06/06/20 09:00 07/06/20 08:59 06/11/20 17:32 Metoprolol Tartrate (Lopressor) 25 mg BID ORAL 06/06/20 09:00 09/04/20 08:59 06/12/20 08:47 Multivitamins Therapeutic (Therapeutic Multivitamin) 1 ea DAILY ORAL 06/06/20 09:00 07/06/20 08:59 06/12/20 08:47 Piperacillin Sod/ Tazobactam Sod 3.375 gm/Sodium Chloride 110 ml @ 27.5 mls/hr Q8H IVPB 06/09/20 17:00 06/16/20 16:59 06/12/20 08:56 Potassium Chloride (K-Dur) 10 meq TWICE A DAY ORAL 06/06/20 09:00 09/04/20 08:59 06/12/20 08:46 Pseudoephedrine HCl (Sudafed) 30 mg Q6H PRN ORAL congestion 06/06/20 02:15 09/04/20 02:14 06/07/20 05:32 Ropinirole HCl (Requip) 1 mg TWICE A DAY PRN ORAL Muscle Spasm 06/06/20 05:00 07/06/20 04:59 06/11/20 05:54 Sodium Chloride 1,000 ml @ 75 mls/hr [id number] IV 06/06/20 15:45 07/06/20 15:44 06/12/20 05:36 Thyroid ([place] Thyroid) 15 mg DAILY ORAL 06/06/20 09:00 07/06/20 08:59 06/12/20 08:44 Zinc Sulfate (Zinc Sulfate) 220 mg DAILY ORAL 06/10/20 11:00 09/08/20 10:59 06/12/20 08:47 Avtar Irene MD Jun 12, 2020 13:07"
--- NOTE | 2020-06-16 10:41 | Discharge Summary ---
Discharge Summary Discharge Summary _ DATE OF ADMISSION: 06/05/2020 DATE OF DISCHARGE: 06/12/2020 DISCHARGED BY: Dr. Butler REASON FOR ADMISSION: 60 years old female with past medical history of atrial fibrillation, diabetes mellitus, CVA , hyperlipidemia, presented with cough, shortness of breath for 1 week. Patient reported feeling nauseous. Also reported fever and chills. Patient was diagnosed prior with COVID-19. Nursing staff reported reduced oral intake. Upon evaluation patient was saturating 92% on room air. Laboratory work-up revealed no leukocytosis, stable hemoglobin and hematocrit. Stable electrolytes and renal parameters. Glucose 212. Lactic acid 3.7. Magnesium 1.5. Troponin negative , proBNP 281. EKG revealed atrial fibrillation with a controlled ventricular response. Rapid COVID-19 was positive. Chest x-ray demonstrated cardiomegaly , no definite acute process. Urinalysis revealed findings consistent with UTI. In ED patient received empiric antibiotic , IV fluids and admitted for further management. CONSULTANTS: ID specialist Dr. Noel HOSPITAL COURSE: Patient admitted to medical surgical floor to isolation room. Antibiotic provided as per ID specialist recommendation. Blood cultures were negative. Urine culture revealed E. coli and Proteus mirabilis ESBL. No leukocytosis. Patient had diarrhea. Stool for C difficile was negative. Patient will need to continue antibiotic for additional 3 days at the facility to complete the course as per ID specialist recommendation. Supplemental oxygen was on board as needed to keep pulse oximetry above 92%. SNF medication continued. Magnesium was replaced. Blood sugar was managed with sliding scale of insulin. Anticoagulation with Eliquis continued. Patient received 3 days of steroids. Supportive care provided. Pulse oximetry remained stable on room air. Patient clinically stabilized and was ready for discharge FINAL DIAGNOSES: E. coli, Proteus UTI COVID-19 pneumonia Diabetes mellitus Atrial fibrillation CVA DISCHARGE MEDICATIONS: See Medication Reconciliation list. DISCHARGE INSTRUCTIONS: Patient was discharged to the longterm facility. Follow up with medical doctor at the facility. I have been assigned to dictate discharge summary for this account. I was not involved in the patient's management. Renetta Mclaughlin NP Jun 16, 2020 10:41
== END 2020-06-12 15:50 | DRG 177 ==
LOC: EDBD 20:36 → EMR 21:05 → 4E 21:23 → EDBEDREQ 22:12
DX: U07.1 COVID-19 (principal); J12.89 Other viral pneumonia; N39.0 Urinary tract infection, site not specified; E87.1 Hypo-osmolality and hyponatremia; I69.354 Hemiplegia and hemiparesis following cerebral infarction affecting left non-dominant side; B96.4 Proteus (mirabilis) (morganii) as the cause of diseases classified elsewhere; B96.20 Unspecified Escherichia coli [E. coli] as the cause of diseases classified elsewhere; E86.0 Dehydration; I48.91 Unspecified atrial fibrillation; Z96.652 Presence of left artificial knee joint; E11.9 Type 2 diabetes mellitus without complications; Z79.84 Long term (current) use of oral hypoglycemic drugs; Z88.1 Allergy status to other antibiotic agents; Z88.2 Allergy status to sulfonamides
CPT/HCPCS: 36415; 71045; 80053; 81003; 82550; 82553; 82962; 83036; 83605; 83690; 83735; 83880; 84100; 84484; 85025; 85610; 85730; 87040; 87081; 87086; 87181; 87324; 93005; 96365; 99285; J1815; J7030; U0002